=== PATIENT | female | born 1970 | race Caucasian/White ===

== ENCOUNTER 2017-09-08 18:46 | Emergency (ER) | payer OTHER, SELFPAY ==
[2017-09-08 18:47] VITALS: BP 116/80; PULSE 72; RESP 18; TEMP 37.2; O2SAT 95; BMI 27.4
--- NOTE | 2017-09-08 19:08 | CT_ITS ---
CTA Chest WO/W Contrast INDICATION: COUGH WITH SOB X 2 WEEKS, DX WITH BRONCHITIS, HX GB, KS, KYLIE COMPARISON: None TECHNIQUE: High resolution axial CT imaging of the chest during intravenous contrast administration, CTA protocol. Multiplanar and MIP 3D reformatted images. 75 mL of Isovue-370 were given intraveniously. Radiation dose optimization technique applied. FINDINGS: There is no evidence of pulmonary arterial filling defect to suggest PE. Heart size is within normal limits. Aortic arch is unremarkable. Aberrant right subclavian artery is incidentally noted, normal variation. The lungs demonstrate mild diffuse centrilobular emphysematous changes. Mild central bronchiectasis are noted. Mild central peribronchial opacities are present, this is compatible with given history of bronchitis. Subsegmental atelectasis is seen in the dependent portions of the lower lobes and platelike atelectasis at the lung bases. No evidence of pleural effusion. No evidence of pneumonia. CT/CTA Chest W/WO Contrast IMPRESSION: No evidence of PE or aortic dissection Mild centrilobular emphysematous changes and mild bronchiectasis. Central peribronchial opacities, compatible with given history of bronchitis. Bibasilar atelectasis. at 2103 Reported and signed by: Milady Salazar MD Electronically Signed: Milady Salazar MD at 20:02 EST Tel , Service support ,
[2017-09-08 19:24] VITALS: O2SAT 97
[2017-09-08 19:28] LABS: Absolute Lymphocyte Count 0.84 X10^3/ul (0.83-4.51); Absolute Neutrophil Count 6.4 X10^3/uL (2.0-7.7); Basophil# 0.01 X10^3/uL; Basophil% 0.1 % (0-1); Hematocrit 34.6 % (37-47); Hemoglobin 11.2 g/dl (12.0-15.0); Lymphocyte # 0.84 X10^3/ul (4.0); Lymphocyte % 10.4 % (19-41); Mean Corp Hgb Conc 32.4 g/gl (32-36); Mean Corpuscular Hgb 30.8 pg (27.0-32.0); Mean Corpuscular Volume 95.1 fL (81-99); Mean Platelet Vol. 9.5 fl (6.2-12.0); Monocyte# 0.68 X10^3/uL; Monocyte% 8.4 % (0-10); Neutrophil # 6.44 X10^3/uL (2.7-7.7); POSITIVE COUNT NO; POSITIVE DIFFERENTIAL NO; POSITIVE MORPHOLOGY NO; Platelet Count 250 K/mm3 (150-450); RBC Distribution Width CV 14.3 % (11.6-14.6); RBC Distribution Width SD 49.5 fl (35.1-43.9); Red Blood Count 3.64 M/mm3 (4.2-5.4); White Blood Count 8.1 K/mm3 (4.4-11.0)
[2017-09-08] MEDS: 0.9% Normal Saline 1,000 ML 150 ML IV (19:35)
[2017-09-08 19:47] LABS: Anion Gap 5 (5-15); BUN 12 mg/dL (7-18); BUN/Creat Ratio 16.9 RATIO (10-20); Calcium,Total 8.1 mg/dL (8.5-10.1); Chloride 107 mmol/L (98-107); Creatinine, Serum 0.71 mg/dL (0.55-1.02); EST Glomerular Filtration Rate 95 mL/min (>60); Est Glom Filt Rate - Afr Amer 115 mL/min (>60); Estimated Creatinine Clearance 90.99 ml/min; Glucose 142 mg/dL (74-106); Potassium 3.5 mmol/L (3.5-5.1); Sodium Level 144 mmol/L (136-145)
[2017-09-08 20:10] VITALS: PULSE 74; RESP 16
[2017-09-08] MEDS: Ipratropium/Albuterol Sulfate 3 ML AMPUL.NEB INHALATION (20:10)
[2017-09-08 20:30] LABS: Pregnancy, Serum, hCG Quali. NEGATIVE Negative (0-9 Nonpreg)
[2017-09-08 21:29] VITALS: BP 117/78; PULSE 61; RESP 19; O2SAT 96
--- NOTE | 2017-09-08 21:33 | ED.VISSUMM ---
- ER Visit Summary Date of Service: 09/08/17 Chief Complaint: Cough and shortness of breath History of Present Illness: The patient is a 46 F with a 2-3 week history of cough, congestion, and shortness of breath. She reports fever for the first week and a half of her illness. She is been treated with a Z-Francesco and is currently on doxycycline. She did do a short burst of steroids. Patient describes spasms of cough with difficulty catching her breath. She does work in a pediatric office. Physical Examination: Blood pressure is 116/80, temperature 99, heart rate 72, respiratory rate 18, pulse ox 95% on room air. Patient sitting upright in bed in no acute distress. She is ill-appearing but not toxic. Head neck examination is unremarkable. Heart is regular rate and rhythm. Lung sounds are diminished throughout. Abdomen is soft nontender. Extremity examination is normal strong distal pulses. Test Results: CBC was normal white count. She is a left shift with 80% neutrophils. Hemoglobin is 11.2. Chemistry studies are significant for glucose of 142. CT of the chest shows no evidence of PE or dissection. There is central emphysema changes with mild bronchiectasis. There is central peribronchial opacities compatible with history of bronchitis. Bibasilar atelectasis is noted. Emergency Department Course and Treatment: Pertussis studies were sent. Patient was given a DuoNeb treatment and actually did improve following this. She is given IV fluids. At this time patient will be given albuterol MDI with a spacer and taught how to use it. She be placed back on a prednisone taper. She is to complete the antibiotic that she is currently on but we did discuss the possibility this all being viral in nature. Pertussis studies will not be available but she will be called with results of positive. Treatment Plan: [] Disposition: Discharge Impression: Bronchitis This note was generated with [employer] dictation software. It may contain incorrect words, spelling, and punctuation that were not noted in review of the chart prior to signing ED Disposition - Plan for ED Patient: Chief Complaint: Shortness of Breath Referrals: Luis Miguel Schmitz DO [Primary Care Provider] -
--- NOTE | 2017-09-08 21:36 | ED.DEP ---
ED Disposition - Plan for ED Patient: Disposition: Home or Assisted Living Chief Complaint: Shortness of Breath Instructions: Acute Bronchitis Prescriptions: Prednisone 10 mg PO UD #33 tablet Referrals: Luis Miguel Schmitz DO [Primary Care Provider] - 1 Week
[2017-09-08 21:51] VITALS: BP 100/58; PULSE 54; RESP 18; O2SAT 96
== END 2017-09-08 21:52 | disposition home or self-care (01) ==
PROVIDERS: Emergency Provider Emergency Medicine; Family Provider Student in an Organized Health Care Education/Training Program; PCP Student in an Organized Health Care Education/Training Program
DX: J40 Bronchitis, not specified as acute or chronic (principal); E03.9 Hypothyroidism, unspecified; F90.9 Attention-deficit hyperactivity disorder, unspecified type; Z79.899 Other long term (current) drug therapy
CPT/HCPCS: 71275; 80048; 84703; 85025; 87798; 94640; 96360; 96361; 99284; J7030; Q9967; A4216

== ENCOUNTER 2019-11-14 17:40 | Emergency (ER) | payer OTHER, SELFPAY ==
[2019-11-14 17:41] VITALS: BP 136/91; PULSE 93; RESP 16; TEMP 36.2; O2SAT 96; BMI 28.3
--- NOTE | 2019-11-14 17:50 | EKG12_ITS ---
Test Reason : CP/SOB Blood Pressure : / mmHG Vent. Rate : 076 BPM Atrial Rate : 076 BPM P-R Int : 158 ms QRS Dur : 084 ms QT Int : 398 ms P-R-T Axes : 046 053 038 degrees QTc Int : 447 ms Normal sinus rhythm Normal ECG When compared with ECG of 03-MAY-2017 18:37, No significant change was found Confirmed by LEIDY TERAN, LAURIE ([id number]), content editor KVNG SOSA ([id number]) on 11/26/2019 10:34:21 AM Referred By: JUAN MANUEL Confirmed By:LAURIE FORBES MD
--- NOTE | 2019-11-14 18:04 | EKG12_ITS ---
Test Reason : CP/SOB Blood Pressure : / mmHG Vent. Rate : 076 BPM Atrial Rate : 076 BPM P-R Int : 150 ms QRS Dur : 084 ms QT Int : 404 ms P-R-T Axes : -05 003 018 degrees QTc Int : 454 ms Normal sinus rhythm Normal ECG When compared with ECG of 14-NOV-2019 17:50, MANUAL COMPARISON REQUIRED, DATA IS UNCONFIRMED Confirmed by LEIDY TERAN, LAURIE ([id number]), scientific editor KVNG SOSA ([id number]) on 11/26/2019 10:24:29 AM Referred By: JUAN MANUEL Confirmed By:LAURIE FORBES MD
[2019-11-14 18:27] VITALS: O2SAT 100
--- NOTE | 2019-11-14 18:28 | ED.DCSUM_ITS ---
History of Present Illness Chief Complaint: Shortness of Breath Informant: Patient Onset: Month(s) Activity at onset: Light Activity Timing: Intermittent Associated Symptoms: Cough Chest Pain: Aching, Pressure Narrative: Patient is a 49-year-old female with history of hypothyroid presenting with lightheadedness and feeling like she is not getting enough oxygen. Patient states she has been having respiratory symptoms for the past 3 months or so. She initially had a cough and was tested for coronavirus because she is a [employer] employee. This was negative. She is had no reported fevers or any other symptoms. For the past 2 weeks her symptoms have been more intense. She states when she sitting at her desk she gets discomfort in the center of her chest and feels like she is not taking a deep enough breath. She notes that when she goes to stand up she feels lightheaded. She denies any swelling of her legs. Has history of DVT or PE. PE Risk Factors: Negative for: Cancer, OCP + Smoking + > 35, Prior DVT or PE, Recent immobilization, Recent surgery, Recent travel Prior similar symptoms: Yes - After an episode of bronchitis Past Medical History - Allergies and Home Meds Allergies/Adverse Reactions: Allergies No Known Allergies Allergy (Verified 12/11/13 12:05) Primary Care Physician: Luis Miguel Schmitz DO [Primary Care Provider] - Past Medical History: - - ADHD, hypothyroid, migraines Surgical History: cholecystectomy, hysterectomy Smoking Status: Never smoker Review of Systems General: Denies: Chills, Fever, Sweats Eyes: Denies: Visual changes - bilaterally, Diplopia ENT: Denies: Rhinorrhea, Sore throat Cardiovascular: Reports: Chest pain. Denies: Palpitations Respiratory: Reports: Dyspnea, Cough. Denies: Dyspnea on exertion Gastrointestinal: Denies: Abdominal pain, Nausea, Vomiting, Diarrhea, Melena, Hematochezia Genitourinary: Denies: Dysuria, Hematuria, Frequency Musculoskeletal: Denies: Back pain, Extremity Pain Skin: Denies: Rash, Wounds Neurological: Denies: Headache, Weakness, Numbness Physical Exam Vital Signs/Narrative: Vital Signs Temp Pulse Resp BP Pulse Ox 11/14/19 17:41 97.2 F L 93 16 136/91 H 96 Inital Vital Signs reviewed: Yes General: Well nourished, Well developed, No Acute Distress Head: Normocephalic, Atraumatic Eyes: Perrl, EOMI ENT: Moist mucous membranes, No rhinorrhea, TM's clear Neck: Supple, Nontender, No JVD Cardiovascular: Regular rate, Regular rhythm, No murmurs Respiratory: No distress, CTA bilaterally, Chest nontender, - - No crackles. Negative for: Rhonchi, Wheezing Abdomen: Soft, Nontender, Nondistended, Normal bowel sounds Back: Nontender, Normal Inspection Extremities: Nontender, No edema Skin: Normal color, No rash Neurological: Alert, Oriented x3, Cranial nerves II-XII grossly intact, Normal Strength, Normal Sensation Psychological: Normal affect, Normal Mood Diagnostic/Tx/Re-eval Chest X-Ray - ED: 1 View, Read by ED Physician, Read by Radiologist, No Acute Disease Clinical Impression(s) from Imaging Studies Chest X-Ray 11/14/19 18:40 IMPRESSION: No acute cardiopulmonary disease or major interval change. Electronically Signed: Edy Wan DO at 19:17 EDT Tel [phone], Service support , Laboratory Data 11/14/19 11/14/19 11/14/19 18:23 18:23 18:23 WBC 4.8 RBC 4.33 Hgb 13.5 Hct 39.3 MCV 90.8 MCH 31.2 MCHC 34.4 RDW Std Deviation 40.9 RDW Coeff of Darrian 12.2 Plt Count 293 MPV 9.8 Immature Gran % (Auto) 0.400 Neut % (Auto) 51.4 Lymph % (Auto) 30.6 [place] % (Auto) 12.0 H Eos % (Auto) 4.8 Baso % (Auto) 0.8 Absolute Neuts (auto) 2.5 Absolute Lymphs (auto) 1.48 Nucleated RBC % 0 Sodium 141 Potassium 3.5 Chloride 108 H Carbon Dioxide 28.0 Anion Gap 5 BUN 10 Creatinine 0.90 Estim Creat Clear Calc 69.53 Est GFR (MDRD) Af Amer 87 Est GFR (MDRD) Non-Af 72 BUN/Creatinine Ratio 11.2 Glucose 95 Calcium 8.9 Troponin I < 0.015 B-Natriuretic Peptide 7.9 TSH 0.22 L - Rhythm Strip Rhythm Strip: Sinus Rhythm Rate: 76 Ectopy: None - EKG Initial EKG Interpretation: Sinus Rhythm, - - Normal sinus rhythm at a rate of 76Normal intervalsNormal axisNormal ST segments - Medical Decision Making Patient is evaluated for sensation of not getting enough oxygen when she breathes and chest discomfort. The symptoms been ongoing for weeks if not months. Patient is hemodynamically stable and breathing comfortably in the emergency room despite having the symptoms. Her vital signs are normal. She is PE RC negative. In addition patient had similar symptoms 2 years ago she had a negative CTA. She is clear breath sounds and a benign physical exam. She is hemodynamically stable. Work-up including EKG, chest x-ray and troponin are all unremarkable. Her TSH is low. I do question of patient might be on too high of a dose of Synthroid and this could be contributing to her symptoms. She states her free T4 has been elevated in the past but no medication changes were performed. Her orthostatic vital signs are negative. I do not know why she feels dizzy when she stands up. Patient symptoms are not consistent with an acute respiratory infection. Patient is previously been swab for COVID-19 and was negative. Discussed with PCP on-call who will arrange further outpatient follow-up. PCP is counseled of patient's low TSH level and possible need to adjust her Synthroid dose as well. Patient is counseled on signs and symptoms requiring return to the emergency room. Patient verbalizes agreement and understand this plan. Patient discharged home in stable and improved condition. ED Disposition - Plan for ED Patient: Disposition: Home or Assisted Living Diagnosis: Dyspnea, Dizziness Instructions: ED Dyspnea Referrals: Luis Miguel Schmitz DO [Primary Care Provider] - Additional Instructions: Your TSH was low. You might have too high of a dose of Synthroid. It is very important that you follow-up on Sunday with your primary care doctor for further evaluation of this. The exact cause of your symptoms is not clear.
--- NOTE | 2019-11-14 18:40 | RAD_ITS ---
STUDY: X-RAY CHEST REASON FOR EXAM: Female, 49 years old. Shortness of breath with chest pain. TECHNIQUE: Single AP portable view of the chest. COMPARISON: August 16, 2012. CTA of the chest, September 08, 2017., FINDINGS: The lungs are clear and expanded. There is no demonstrated pleural abnormality. Normal size heart. Normal mediastinum and abhinav. Normal visualized pulmonary arteries. Normal visualized aortic arch and descending thoracic aorta. The thoracic spine is obscured by the mediastinum. Normal visualized ribs, clavicles, and shoulders. There is no demonstrated abnormality of the visualized soft tissue structures of the upper abdomen. RAD/Chest 1 View (Portable) IMPRESSION: No acute cardiopulmonary disease or major interval change. Electronically Signed: Edy Wan DO at 19:17 EDT Tel [phone], Service support ,
[2019-11-14 18:47] LABS: Absolute Lymphocyte Count 1.48 X10^3/uL (0.83-4.51); Absolute Neutrophil Count 2.5 X10^3/uL (2.0-7.7); Basophil# 0.04 X10^3/uL; Basophil% 0.8 % (0-1); Eosinophil# 0.23 X10^3/uL; Eosinophils% 4.8 % (0-5); Hematocrit 39.3 % (37-47); Hemoglobin 13.5 g/dL (12.0-15.0); Lymphocyte # 1.48 X10^3/ul (4.0); Lymphocyte % 30.6 % (19-41); Mean Corp Hgb Conc 34.4 g/dL (32-36); Mean Corpuscular Hgb 31.2 pg (27.0-32.0); Mean Corpuscular Volume 90.8 fL (81-99); Mean Platelet Vol. 9.8 fl (6.2-12.0); Monocyte# 0.58 X10^3/uL; NRBC Flagged by Analyzer 0 % (0-5); Neutrophil # 2.49 X10^3/uL (2.7-7.7); Neutrophil % 51.4 % (47-70); Platelet Count 293 K/mm3 (150-450); RBC Distribution Width CV 12.2 % (11.6-14.6); RBC Distribution Width SD 40.9 fl (35.1-43.9); Red Blood Count 4.33 M/mm3 (4.2-5.4); White Blood Count 4.8 K/mm3 (4.4-11.0)
[2019-11-14 18:58] VITALS: BP 108/74; BP 113/77; BP 121/82; PULSE 59; PULSE 64; PULSE 69
[2019-11-14 18:58] LABS: Anion Gap 5 (5-15); BUN 10 mg/dL (7-18); BUN/Creat Ratio 11.2 RATIO (10-20); Calcium,Total 8.9 mg/dL (8.5-10.1); Chloride 108 mmol/L (98-107); EST Glomerular Filtration Rate 72 mL/min (>60); Est Glom Filt Rate - Afr Amer 87 mL/min (>60); Estimated Creatinine Clearance 69.53 ml/min; Glucose 95 mg/dL (74-106); Potassium 3.5 mmol/L (3.5-5.1); Sodium Level 141 mmol/L (136-145); Thyroid Stim Hormone (TSH) 0.22 uIU/mL (0.358-3.74)
[2019-11-14 19:10] LABS: BNP,B-Type NATRIURETIC PEPTIDE 7.9 pg/mL (0-100)
[2019-11-14 19:19] VITALS: O2SAT 99
[2019-11-14 20:46] VITALS: BP 106/56; PULSE 73; RESP 16; O2SAT 100
== END 2019-11-14 20:47 | disposition home or self-care (01) ==
PROVIDERS: Emergency Provider Emergency Medicine; PCP Student in an Organized Health Care Education/Training Program
DX: R06.02 Shortness of breath (principal); R42 Dizziness and giddiness; E03.9 Hypothyroidism, unspecified; G43.909 Migraine, unspecified, not intractable, without status migrainosus; F90.9 Attention-deficit hyperactivity disorder, unspecified type
CPT/HCPCS: 71045; 80048; 83880; 84443; 84484; 85025; 93005; 99285; A4216